=== PATIENT | female | born 1950 | race Caucasian/White ===

== ENCOUNTER 2017-07-02 05:37 | Day surgery (SDC) | payer MEDICARE, OTHER ==
[2017-07-02] MEDS ORDERED: ACETAMINOPHEN 1000 MG/100 ML IVPB (07:00)
[2017-07-02] MEDS ORDERED: LIDOCAINE 2% (SDV) 5 ML INJ (07:00)
[2017-07-02] MEDS ORDERED: PROPOFOL 20 ML (07:37)
[2017-07-02] MEDS ORDERED: morphine 2 MG INJ IV (08:00)
[2017-07-02] MEDS: LIDOCAINE 1% (MPF) 30 ML INJ (08:02)
[2017-07-02] MEDS: ROPIVACAINE 0.5 % 30 ML VIAL (08:26)
[2017-07-02] MEDS: morphine SULFATE/PF (10 MG/10 ML) INJ (08:26)
[2017-07-02] MEDS ORDERED: SUGAMMADEX SODIUM 200 MG/2 ML VIAL IV (08:28)
[2017-07-02] MEDS ORDERED: ONDANSETRON 4 MG INJ (08:29)
[2017-07-02] MEDS ORDERED: DEXAMETHASONE 4 MG/ML 1 ML INJ (08:29)
[2017-07-02] MEDS ORDERED: CEFAZOLIN 1 GM INJ (08:29)
[2017-07-02] MEDS ORDERED: hydrALAzine 20 MG INJ IV (09:00)
[2017-07-02] MEDS ORDERED: EPHEDrine SULFATE 50 MG/5 ML SYG IV (09:00)
[2017-07-02] MEDS ORDERED: ALBUTEROL 0.083% (NEB) 2.5 MG/3 ML AMP HHN (09:00)
[2017-07-02] MEDS ORDERED: FENTAnyl 50 MCG/ML VIAL IV ×3 (09:00)
[2017-07-02] MEDS ORDERED: DIPHENHYDRAMINE 50 MG INJ IV (09:00)
[2017-07-02] MEDS ORDERED: METOCLOPRAMIDE 10 MG INJ IV (09:00)
[2017-07-02] MEDS ORDERED: LABETALOL HCL 20MG INJ IV (09:00)
[2017-07-02] MEDS ORDERED: MEPERIDINE 25 MG INJ IV (09:00)
[2017-07-02] MEDS ORDERED: MIDAZOLAM 1 MG/ML 2 ML INJ IV (09:00)
[2017-07-02] MEDS ORDERED: HYDROmorphONE (0.2 MG/ML) 10ML SYG IV ×2 (09:00)
[2017-07-02] MEDS ORDERED: OXYCODONE/ACETAMINOPHEN (5/325) TAB PO ×2 (09:00)
[2017-07-02] MEDS ORDERED: ONDANSETRON 4 MG INJ IV (09:00)
[2017-07-02] MEDS: KETOROLAC 30 MG INJ IV (09:39)
[2017-07-02] MEDS: HYDROmorphONE (0.2 MG/ML) 10ML SYG IV (09:39)
== END 2017-07-02 10:38 | disposition home or self-care (01) ==
LOC: SDS 05:37
DX: M23.251 Derangement of posterior horn of lateral meniscus due to old tear or injury, right knee (principal); M23.203 Derangement of unspecified medial meniscus due to old tear or injury, right knee; M94.261 Chondromalacia, right knee; I10 Essential (primary) hypertension
CPT/HCPCS: 29880